=== PATIENT | male | born 1985 | race Two or more races ===

== ENCOUNTER 2021-03-06 10:21 | Emergency (ER) | payer OTHER ==
[2021-03-06] MEDS: Sodium Chloride 0.9% 1,000 ML IV SCH (10:30)
[2021-03-06] MEDS: Morphine 4 MG/ML VIAL IVPUSH ONE ×2 (10:35→11:24)
[2021-03-06] MEDS: Sodium Chloride 0.9% 10 ML Syringe FLUSH PRN (10:38)
[2021-03-06] MEDS: Ketorolac 30 MG/ML SDV IVPUSH ONE (10:39)
[2021-03-06] MEDS: Pantoprazole 40 MG Vial IVPUSH ONE (10:47)
[2021-03-06] MEDS: diphenhydrAMINE 50 MG/ML SDV IVPUSH ONE (10:47)
--- NOTE | 2021-03-06 10:59 | EDM.PDOC ---
ED HPI GENERAL MEDICAL PROBLEM - General Chief Complaint: Abdominal Pain Stated Complaint: PAIN Time Seen by Provider: 03/06/21 10:45 Source of Information: Reports: Patient History Limitations: Reports: No Limitations - History of Present Illness INITIAL COMMENTS - FREE TEXT/NARRATIVE: Pt presents with complaints of RUQ abd pain , onset this am , sharp shooting radiates to the epigastrium. States he had the pain one week ago while in [place]( same pain and was told it was gallbladder pain . Pain is sharp shooting pain with nausea States he was given hydrocodone and pain had seemed to be controlled till this am Onset: Today Onset Date: 02/27/21 Duration: Day(s):, Getting Worse Location: Reports: Abdomen Quality: Reports: Ache, Dull, Same as Previous Episode Severity: Moderate Improves with: Reports: Medication Worsens with: Reports: Movement Context: Reports: Other Associated Symptoms: Reports: Loss of Appetite, Malaise, Nausea/Vomiting Treatments [employer] DIRECTOR: Reports: Other Medication(s) (hydrocodone) - Related Data Allergies Allergy/AdvReac Type Severity Reaction Status Date / Time No Known Allergies Allergy Verified 03/06/21 11:31 Home Meds: Home Meds Hydrocodone/Acetaminophen [Hydrocodon-Acetaminophen 5-325] 1 each PO Q6HR #10 tablet 03/06/21 [Rx] Levofloxacin [Levaquin] 500 mg PO BID #20 tablet 03/06/21 [Rx] ED ROS GENERAL - Review of Systems Review Of Systems: See Below Constitutional: Reports: Malaise, Weakness, Fatigue, Weight Gain. Denies: Fever, Chills HEENT: Reports: No Symptoms Respiratory: Reports: No Symptoms Cardiovascular: Reports: No Symptoms Endocrine: Reports: No Symptoms GI/Abdominal: Reports: Abdominal Pain, Decreased Appetite, Distension, Nausea : Reports: No Symptoms Musculoskeletal: Reports: No Symptoms Skin: Reports: No Symptoms ED EXAM, GI/ABD - Physical Exam Exam: See Below Exam Limited By: No Limitations General Appearance: Alert, WD/WN, No Apparent Distress Eyes: Bilateral: EOMI Ears: Normal External Exam Nose: Normal Inspection Throat/Mouth: Normal Oropharynx Head: Atraumatic, Normocephalic Neck: Supple, Non-Tender Respiratory/Chest: Lungs Clear, Normal Breath Sounds Cardiovascular: Regular Rate, Rhythm Extremities: Normal Range of Motion, Non-Tender Neurological: Alert, Oriented, CN II-XII Intact Psychiatric: Normal Affect, Normal Mood Skin Exam: Warm, Dry, Intact Lymphatic: No Adenopathy Course - Vital Signs Last Recorded V/S: Last Vital Signs Temp 36.4 C 03/06/21 10:21 Pulse 85 03/06/21 10:21 Resp 22 H 03/06/21 10:21 BP 147/93 H 03/06/21 10:21 Pulse Ox 96 03/06/21 10:21 - Orders/Labs/Meds Orders: Active Orders 24 hr Category Date Time Status Abdomen Pelvis wo Cont [CT] Stat Exams 03/06/21 10:40 Taken Sodium Chloride 0.9% [Normal Saline] 1,000 ml Med 03/06/21 10:45 Active IV ASDIRECTED Sodium Chloride 0.9% [Saline Flush] Med 03/06/21 10:31 Active 10 ml FLUSH ASDIRECTED PRN Saline Lock Insert [OM.PC] Routine Oth 03/06/21 10:31 Ordered Medication Orders Sodium Chloride (Normal Saline) 1,000 mls @ 999 mls/hr IV ASDIRECTED NÉSTOR Last Admin: 03/06/21 10:30 Dose: 999 mls/hr Documented by: CORAL Sodium Chloride (Sodium Chloride 0.9% 10 Ml Syringe) 10 ml FLUSH ASDIRECTED PRN PRN Reason: Keep Vein Open Last Admin: 03/06/21 10:38 Dose: 10 ml Documented by: CORAL Labs: Laboratory Tests 03/06/21 03/06/21 03/06/21 Range/Units 10:52 10:52 10:52 WBC 6.2 (3.2-10.1) x10-3/uL RBC 4.77 (3.90-5.90) x10(6)uL Hgb 14.3 (12.9-17.7) g/dL Hct 42.5 (38.3-50.1) % MCV 89.0 (80.8-98.7) fL MCH 30.0 (27.0-33.3) pg MCHC 33.8 (28.7-35.3) g/dL RDW 13.7 (12.4-15.0) % Plt Count 174 (117-477) x10(3)uL MPV 10.1 (6.7-11.0) fL Neut % (Auto) 58.1 (40.3-71.8) % Lymph % (Auto) 30.8 (15.8-45.3) % Bracken % (Auto) 7.7 (5.5-15.2) % Eos % (Auto) 2.7 (0.1-6.8) % Baso % (Auto) 0.7 (0.3-3.8) % Neut # (Auto) 3.6 (1.7-6.9) x10-3/uL Lymph # (Auto) 1.9 (0.5-4.5) x10-3/uL Bracken # (Auto) 0.5 (0.0-1.2) x10-3/uL Eos # (Auto) 0.2 (0.0-0.6) x10-3/uL Baso # (Auto) 0.0 (0.0-0.3) x10-3/uL Sodium 146 H (135-145) mmol/L Potassium 3.8 (3.5-5.3) mmol/L Chloride 106 (100-110) mmol/L Carbon Dioxide 28 (21-32) mmol/L BUN 17 (7-18) mg/dL Creatinine 1.0 (0.70-1.30) mg/dL Est Cr Clr Drug Dosing TNP Estimated GFR (MDRD) > 60 (>60) BUN/Creatinine Ratio 17.0 (9-20) Glucose 129 H (80-116) mg/dL Calcium 8.8 (8.6-10.2) mg/dL Total Bilirubin 0.5 (0.1-1.3) mg/dL AST 32 H (5-25) IU/L ALT 50 H (12-36) U/L Alkaline Phosphatase 104 (56-112) IU/L Total Protein 7.0 (6.0-8.0) g/dL Albumin 3.9 (3.5-5.2) g/dL Globulin 3.1 g/dL Albumin/Globulin Ratio 1.3 Amylase 42 (25-115) U/L Lipase 48 L (73-393) U/L Meds: Medications Generic Name Dose Route Start Last Admin Trade Name Freq PRN Reason Stop Dose Admin Sodium Chloride 1,000 mls @ 999 mls/hr 03/06/21 10:45 03/06/21 10:30 Normal Saline IV 999 mls/hr ASDIRECTED NÉSTOR Administration Sodium Chloride 10 ml 03/06/21 10:31 03/06/21 10:38 Sodium Chloride 0.9% 10 Ml Syringe FLUSH 10 ml ASDIRECTED PRN Administration Keep Vein Open Discontinued Medications Generic Name Dose Route Start Last Admin Trade Name Freq PRN Reason Stop Dose Admin Diphenhydramine HCl 50 mg 03/06/21 10:45 03/06/21 10:47 Diphenhydramine 50 Mg/Ml Sdv IVPUSH 03/06/21 10:46 50 mg ONETIME ONE Administration Ketorolac Tromethamine 30 mg 03/06/21 10:33 03/06/21 10:39 Ketorolac 30 Mg/Ml Sdv IVPUSH 03/06/21 10:34 30 mg ONETIME ONE Administration Morphine Sulfate 4 mg 03/06/21 10:32 03/06/21 10:35 Morphine 4 Mg/Ml Vial IVPUSH 03/06/21 10:33 4 mg ONETIME ONE Administration Morphine Sulfate 4 mg 03/06/21 11:19 03/06/21 11:24 Morphine 4 Mg/Ml Vial IVPUSH 03/06/21 11:20 4 mg ONETIME ONE Administration Pantoprazole Sodium 40 mg 03/06/21 10:40 03/06/21 10:47 Pantoprazole 40 Mg Vial IVPUSH 03/06/21 10:41 40 mg ONETIME ONE Administration - Re-Assessments/Exams Free Text/Narrative Re-Assessment/Exam: 03/06/21 12:09 pt had pain relive with 8mg of morphine labs are normal CT confirms gall stone with no infection Pt will be discharged home Encouraged to have cholecystectomy Departure - Departure Time of Disposition: 12:20 Disposition: Home, Self-Care 01 Condition: Good Clinical Impression: Cholelithiasis - Discharge Information *PRESCRIPTION DRUG MONITORING PROGRAM REVIEWED*: Yes *COPY OF PRESCRIPTION DRUG MONITORING REPORT IN PATIENT FABI: Yes Prescriptions: Hydrocodone/Acetaminophen [Hydrocodon-Acetaminophen 5-325] 1 each PO Q6HR #10 tablet Levofloxacin [Levaquin] 500 mg PO BID #20 tablet Instructions: Cholelithiasis, [id number], Pain Medicine Instructions, [id number] Referrals: PCP,None [Primary Care Provider] - Forms: ED Department Discharge Additional Instructions: Make appt to see your PCP and surgeon for gallbladder removal Sepsis Event Note (ED) - Focused Exam Vital Signs: Vital Signs Temp Pulse Resp BP Pulse Ox 03/06/21 10:21 36.4 C 85 22 H 147/93 H 96 - My Orders Last 24 Hours: My Active Orders 03/06/21 10:31 Sodium Chloride 0.9% [Saline Flush] 10 ml FLUSH ASDIRECTED PRN Saline Lock Insert [OM.PC] Routine 03/06/21 10:40 Abdomen Pelvis wo Cont [CT] Stat 03/06/21 10:45 Sodium Chloride 0.9% [Normal Saline] 1,000 ml IV ASDIRECTED - Assessment/Plan Last 24 Hours: My Active Orders 03/06/21 10:31 Sodium Chloride 0.9% [Saline Flush] 10 ml FLUSH ASDIRECTED PRN Saline Lock Insert [OM.PC] Routine 03/06/21 10:40 Abdomen Pelvis wo Cont [CT] Stat 03/06/21 10:45 Sodium Chloride 0.9% [Normal Saline] 1,000 ml IV ASDIRECTED
== END 2021-03-06 12:30 | disposition home or self-care (01) ==
LOC: FB.ED 10:21
DX: K80.20 Calculus of gallbladder without cholecystitis without obstruction (principal)
CPT/HCPCS: 36415; 74176; 80053; 82150; 83690; 85025; 96374; 96375; 96376; 99284-25; C9113; J1200; J1885; J2270; J7030